=== PATIENT | male | born 1985 | race African-American/Black ===

== ENCOUNTER 2019-08-01 15:54 | Emergency (ER) | payer SELFPAY ==
[~2019-08-01] VITALS: Ht 185.4 cm; Wt 93.0 kg
[2019-08-01 16:05] VITALS: BP 144/83
--- NOTE | 2019-08-01 17:06 | PHYS DOC ---
Past Medical History Past Medical History: No Pertinent History Additional Past Surgical Histo: BILATERAL KNEE SURGERY Alcohol Use: None Drug Use: None Adult General Chief Complaint Chief Complaint: MECHANICAL FALL HPI HPI Patient is a 34 year old AA male who presents to the ER with complaints of left knee pain after a fall yesterday. Pt states he has had multiple falls for several weeks. He reports having pain in his low back that shoots down his left leg to his toe and that also makes his right leg weak at times. Pt denies any saddle anesthesia, loss of bowel or bladder control, or numbness of his lower extremities at this time. He complains of an abrasion to his left thigh from the fall yesterday. He currently rates his left knee pain a 5/10 on the pain scale. Review of Systems Review of Systems Constitutional: Denies fever or chills [] Eyes: Denies redness, or eye pain [] : see HPI Musculoskeletal: See HPI Integument: Denies rash; see HPI Neurologic: Denies headache, focal weakness or sensory changes [] Complete systems were reviewed and found to be within normal limits, except as documented in this note. Allergies Allergies Allergies Coded Allergies Type Severity Reaction Last Updated Verified No Known Drug Allergies 08/01/19 No Physical Exam Physical Exam Constitutional: Well developed, well nourished, no acute distress, non-toxic appearance. [] HENT: Normocephalic, atraumatic, bilateral external ears normal, nose normal. [] Eyes: PERRLA, EOMI, conjunctiva normal, no discharge. [] Neck: Normal range of motion, no stridor. 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 [] Psychologic: Affect normal, judgement normal, mood normal. [] Current Patient Data Vital Signs Vital Signs Date Time Temp Pulse Resp B/P (MAP) Pulse Ox O2 Delivery O2 Flow Rate FiO2 08/01/19 16:05 97.1 76 16 144/83 (103) 99 Room Air 97.1 EKG EKG [] Radiology/Procedures Radiology/Procedures [] Course & Med Decision Making Course & Med Decision Making Pertinent Labs and Imaging studies reviewed. (See chart for details) dx: medical screening exam Pt received a medical screening exam, no emergent condition is present. Care plan would have included an x-ray of the left knee and medications. Registration at bedside to request co-pay. Pt left after this request. [] Dragon Disclaimer Dragon Disclaimer This electronic medical record was generated, in whole or in part, using a voice recognition dictation system. Departure Departure Impression: Primary Impression: Encounter for medical screening examination Referrals: NO PCP (PCP) ARIANE HARVEY APRN Aug 01, 2019 17:06
== END 2019-08-01 16:45 | disposition home or self-care (01) ==
LOC: ER 15:54
DX: S70.312A Abrasion, left thigh, initial encounter (principal); M54.5 Low back pain; M25.562 Pain in left knee; Z98.890 Other specified postprocedural states; W18.39XA Other fall on same level, initial encounter; Y93.89 Activity, other specified; Y92.89 Other specified places as the place of occurrence of the external cause; Y99.8 Other external cause status
CPT/HCPCS: 99284